=== PATIENT | male | born 1985 | race African-American/Black ===

== ENCOUNTER 2019-08-19 17:59 | Emergency (ER) | payer OTHER ==
[~2019-08-19] VITALS: Ht 190.5 cm; Wt 112.5 kg
[2019-08-19 19:33] LABS: ABSOLUTE NEUTROPHILS 6.3 thou/uL (1.4-8.2); BASOPHILS 0.5 % (0.0-2.0); EOSINOPHILS 1.2 % (0.0-3.0); HEMATOCRIT 44.9 % (42.0-52.0); LYMPHOCYTES 15.8 % (24.0-44.0); MCH 30.1 pg (26.0-34.0); MCHC 33.4 g/dL (28.0-37.0); MONOCYTES 6.9 % (1.0-8.0); POLYS 75.6 % (36.0-66.0); RBC 4.99 mil/uL (4.50-6.00); WBC 8.3 thou/uL (4.0-11.0)
[2019-08-19 19:41] LABS: CALCIUM 9.2 mg/dL (8.5-10.1); CREATININE 1.1 mg/dL (0.7-1.3); POTASSIUM 3.9 mmol/L (3.5-5.1)
[2019-08-19 20:01] LABS: LARGE PLATELETS SEVERAL; PLATELET COUNT 214 thou/uL (150-400)
[2019-08-19 20:45] LABS: AMP/METHAMP Negative (Negative); BARBITURATES Negative (Negative); BENZODIAZEPINES Negative (Negative); COCAINE Negative (Negative); METHADONE Negative (Negative); OPIATES Negative (Negative); PCP Negative (Negative)
[2019-08-19 21:59] VITALS: BP 129/71
--- NOTE | 2019-08-20 10:48 | EKG ---
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 : 1985 Requested By: Leigh Ann Reese Order Number: [id number] MD: Hair Albarado Measurements Intervals [place] Rate: 81 P: 44 [place]: 136 QRS: -7 QRSD: 101 T: 33 QT: 379 QTc: 440 Interpretive Statements Sinus rhythm Probable left atrial enlargement Abnrm T, consider ischemia, anterolateral lds Minimal ST elevation, anterior leads No previous ECG available for comparison Electronically Signed On 08-20-2019 10:48:26 MEAT DEPARTMENT MANAGER by Hair Albarado [email or web address] <ELECTRONICALLY SIGNED> By: Hair Albarado MD 08/20/19 1048 D: [id number] Hair Albarado MD /CESARIO
== END 2019-08-19 22:01 | disposition home or self-care (01) ==
LOC: ER 17:59
PROVIDERS: Emergency Medicine; Nurse Practitioner Family
DX: R00.2 Palpitations (principal); I10 Essential (primary) hypertension; R42 Dizziness and giddiness; Z88.2 Allergy status to sulfonamides

== ENCOUNTER 2020-01-22 14:53 | Emergency (ER) | payer OTHER ==
[~2020-01-22] VITALS: Ht 190.5 cm; Wt 112.0 kg
[2020-01-22] MEDS ORDERED: COZAAR 25 MG TA25 M1 PO (15:33)
[2020-01-22] MEDS ORDERED: TOPROL XL25 MG PO (15:33)
[2020-01-22 16:48] LABS: ABSOLUTE NEUTROPHILS 7.5 thou/uL (1.4-8.2); BASOPHILS 0.4 % (0.0-2.0); HEMOGLOBIN 13.9 gm/dL (14.0-18.0); LYMPHOCYTES 18.1 % (24.0-44.0); MCH 30.4 pg (26.0-34.0); MCV 89.5 fL (80.0-100.0); MONOCYTES 6.4 % (1.0-8.0); PLATELET COUNT 187 thou/uL (150-400); POLYS 74.1 % (36.0-66.0); RBC 4.58 mil/uL (4.50-6.00); RDW 13.1 % (10.5-14.5); WBC 10.1 thou/uL (4.0-11.0)
[2020-01-22 16:53] LABS: ANION GAP 10 mmol/L (7-16); BUN 12 mg/dL (7-18); CALCIUM 8.5 mg/dL (8.5-10.1); CHLORIDE 99 mmol/L (98-107); CO2 27 mmol/L (21-32); CREATININE 1.3 mg/dL (0.7-1.3); GLUCOSE 99 mg/dL (74-106); POTASSIUM 3.6 mmol/L (3.5-5.1); SODIUM 136 mmol/L (136-145)
[2020-01-22 17:04] LABS: ALBUMIN 4.2 g/dL (3.4-5.0); SGOT 22 U/L (15-37); SGPT 51 U/L (30-65); TOTAL BILIRUBIN 0.4 mg/dL (<0.1-1.0); TOTAL PROTEIN 7.8 g/dL (6.4-8.2); TROPONIN-I <0.06 ng/mL (<0.06)
[2020-01-22 17:19] LABS: URINE BILIRUBIN NEGATIVE (Negative); URINE BLOOD NEGATIVE (Negative); URINE CLARITY CLEAR; URINE COLOR YELLOW; URINE GLUCOSE-RANDOM* NEGATIVE (Negative); URINE KETONES TRACE (Negative); URINE LEUKOCYTES-REFLEX NEGATIVE (Negative); URINE NITRITE-REFLEX NEGATIVE (Negative); URINE PROTEIN (DIPSTICK) NEGATIVE (Negative); URINE SPECIFIC GRAVITY <= 1.005 (1.005-1.035); URINE UROBILINOGEN 0.2 E.U./dl (0.2-1.0)
[2020-01-22 20:02] VITALS: BP 148/89
--- NOTE | 2020-01-23 08:38 | EKG ---
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: [facility] : 1985 Requested By: Gillian Pelayo Order Number: [id number] MD: Jose Christine Measurements Intervals [place] Rate: 103 P: 31 FL: 148 QRS: -4 QRSD: 101 T: 24 QT: 341 QTc: 447 Interpretive Statements Sinus tachycardia Nonspecific T wave abnormality Compared to ECG 08/19/2019 18:13:41 T wave abnormality is less pronounced Electronically Signed On 01-23-2020 8:37:08 CDT by Jose Christine [email or web address] <ELECTRONICALLY SIGNED> By: Jose Christine MD, FAC 01/23/20 0837 1501 1501 Jose Christine MD, [facility] /EPI
== END 2020-01-22 20:03 | disposition home or self-care (01) ==
LOC: ER 14:53
PROVIDERS: Physician Assistant
DX: R00.2 Palpitations (principal); R00.0 Tachycardia, unspecified; E86.9 Volume depletion, unspecified; I10 Essential (primary) hypertension; Z79.899 Other long term (current) drug therapy; Z88.2 Allergy status to sulfonamides

== ENCOUNTER 2020-02-26 16:38 | Emergency (ER) | payer OTHER ==
[~2020-02-26] VITALS: Ht 190.5 cm; Wt 110.7 kg
[~2020-02-26 16:38] MED LIST: COZAAR 25 MG TA25 M1 PO; TOPROL XL25 MG PO
[2020-02-26 17:01] LABS: ABSOLUTE NEUTROPHILS 5.2 thou/uL (1.4-8.2); BASOPHILS 0.7 % (0.0-2.0); EOSINOPHILS 1.6 % (0.0-3.0); HEMATOCRIT 45.3 % (42.0-52.0); HEMOGLOBIN 15.3 gm/dL (14.0-18.0); LYMPHOCYTES 28.4 % (24.0-44.0); MCH 30.9 pg (26.0-34.0); MCHC 33.7 g/dL (28.0-37.0); MCV 91.6 fL (80.0-100.0); MONOCYTES 7.3 % (1.0-8.0); PLATELET COUNT 206 thou/uL (150-400); RBC 4.94 mil/uL (4.50-6.00); RDW 13.7 % (10.5-14.5); WBC 8.5 thou/uL (4.0-11.0)
[2020-02-26 17:08] LABS: ANION GAP 6 mmol/L (7-16); BUN 8 mg/dL (7-18); CALCIUM 8.7 mg/dL (8.5-10.1); CHLORIDE 101 mmol/L (98-107); CO2 29 mmol/L (21-32); CREATININE 1.3 mg/dL (0.7-1.3); GLUCOSE 106 mg/dL (74-106); POTASSIUM 3.8 mmol/L (3.5-5.1); SODIUM 136 mmol/L (136-145)
[2020-02-26 17:18] LABS: ALBUMIN 4.1 g/dL (3.4-5.0); SGOT 25 U/L (15-37); SGPT 48 U/L (30-65); TOTAL BILIRUBIN 0.5 mg/dL (0.2-1.0); TOTAL PROTEIN 7.8 g/dL (6.4-8.2); TROPONIN-I <0.06 ng/mL (<0.06)
[2020-02-26] MEDS ORDERED: ATIVAN0.5 M1 PO (18:45)
[2020-02-26 19:14] VITALS: BP 130/77
--- NOTE | 2020-02-27 07:45 | EKG ---
[facility] [place] [address] ELECTROCARDIOGRAM REPORT Name: JOANNA ALMARAZ Room #: [facility]#: [id number] Admission: 02/26/20 Attend Phys: Discharge: 02/26/20 Date of : [birth year] Report #: [id number] THIS REPORT FOR: cc: FAM - No family physician/PCP FAM - No family physician/PCP Jose Christine MD [facility] THIS REPORT FOR: //name// [facility] ED Test Date: 2020-02-26 Test Time: 16:44:25 Pat Name: JOANNA ALMARAZ Department: Room: Gender: Director 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 Marketing: [facility] : 1985 Requested By: Priyank Shepherd Order Number: [id number] MD: Jose Christine Measurements Intervals [place] Rate: 76 P: 55 DC: 127 QRS: -11 QRSD: 88 T: -8 QT: 379 QTc: 427 Interpretive Statements Sinus rhythm Borderline T abnormalities Compared to ECG 01/22/2020 15:01:30 Sinus tachycardia no longer present Electronically Signed On 02-27-2020 7:44:40 CDT by Jose Christine [email or web address] <ELECTRONICALLY SIGNED> By: Jose Christine MD, FAC 02/27/20 0744 1644 1644 Jose Christine MD, [facility] /EPI
--- NOTE | 2020-02-27 07:48 | EKG ---
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: : 1985 Requested By: Priyank Shepehrd Order Number: [id number] MD: Jose Christine Measurements Intervals [place] Rate: 67 P: -12 TN: 119 QRS: -13 QRSD: 88 T: -24 QT: 396 QTc: 418 Interpretive Statements Sinus rhythm Borderline short [place] interval Nonspecific T abnormalities, diffuse leads Compared to ECG 01/22/2020 15:01:30 No significant change was found Electronically Signed On 02-27-2020 7:47:06 CDT by Jose Christine [email or web address] <ELECTRONICALLY SIGNED> By: Jose Christine MD, FACC 02/27/20 0747 1843 1843 Jose Christine MD, [facility] /EPI
== END 2020-02-26 19:14 | disposition home or self-care (01) ==
LOC: ER 16:38
PROVIDERS: Physician Assistant
DX: R00.2 Palpitations (principal); R07.89 Other chest pain; I10 Essential (primary) hypertension; Z87.891 Personal history of nicotine dependence; Z88.2 Allergy status to sulfonamides; Z79.899 Other long term (current) drug therapy

== ENCOUNTER → 2020-03-08 | Outpatient (CLI) | payer OTHER ==
[~2020-03-08] MED LIST changes: +ATIVAN0.5 M1 PO
== END ==
LOC: SJCVCIMAG 08:12
PROVIDERS: ATTEND Internal Medicine
DX: I34.0 Nonrheumatic mitral (valve) insufficiency (principal); I10 Essential (primary) hypertension; R00.2 Palpitations; R07.9 Chest pain, unspecified; Z87.891 Personal history of nicotine dependence